=== PATIENT | male | born 1960 | race Two or more races ===

== ENCOUNTER 2020-04-28 08:45 | Inpatient (IN) | payer OTHER ==
[~2020-04-28] VITALS: Ht 180.3 cm; Wt 81.6 kg
[2020-04-28] MEDS ORDERED: TOPROL XL100 M1 PO (08:57)
[2020-04-28] MEDS ORDERED: NORVASC5 MG PO (08:58)
[2020-04-28] MEDS ORDERED: COZAAR100 MG PO (08:58)
[2020-04-28] MEDS ORDERED: NEXIUM40 M1 PO (08:59)
[2020-04-28] MEDS ORDERED: XARELTO20 MG PO (08:59)
== END 2020-05-05 14:26 | disposition home or self-care (01) | DRG 331 ==
LOC: SURH 05-02 07:00 → O/R 05-02 08:45 → SURG 05-02 09:40 → O/R 05-02 09:40 → SURG 05-02 19:32 → O/R 05-02 20:22 → SURH 05-02 20:53 → SURG 05-03 01:21
PROVIDERS: ADMIT Colon & Rectal Surgery; ATTEND Colon & Rectal Surgery
PROC: 0DBN4ZZ Excision of Sigmoid Colon, Percutaneous Endoscopic Approach (ICD-10-PCS; 2020-05-02)
PROC: 0DNW4ZZ Release Peritoneum, Percutaneous Endoscopic Approach (ICD-10-PCS; 2020-05-02)
PROC: 0DJD8ZZ Inspection of Lower Intestinal Tract, Via Natural or Artificial Opening Endoscopic (ICD-10-PCS; 2020-05-02)
PROC: 0DTP4ZZ Resection of Rectum, Percutaneous Endoscopic Approach (ICD-10-PCS; principal; 2020-05-02 07:00)
DX: K57.30 Diverticulosis of large intestine without perforation or abscess without bleeding (principal); J45.20 Mild intermittent asthma, uncomplicated; I13.10 Hypertensive heart and chronic kidney disease without heart failure, with stage 1 through stage 4 chronic kidney disease, or unspecified chronic kidney disease; N18.2 Chronic kidney disease, stage 2 (mild); D64.9 Anemia, unspecified; F17.200 Nicotine dependence, unspecified, uncomplicated; K66.0 Peritoneal adhesions (postprocedural) (postinfection); Z86.711 Personal history of pulmonary embolism

== ENCOUNTER 2022-12-10 17:38 | Inpatient (IN) | payer OTHER ==
[~2022-12-10] VITALS: Ht 180.3 cm; Wt 83.9 kg
[~2022-12-10 17:38] MED LIST: COZAAR100 MG PO; NEXIUM40 M1 PO; NORVASC5 MG PO; TOPROL XL100 M1 PO; XARELTO20 MG PO
--- NOTE | 2022-12-10 17:48 | NUR ---
PTE ALERTA,ESTABLE Y ORIENTADO.AMBERLY REFIERE QUE DESDE EVELYN COMENZO CON LAS DIARRHEA Y VOMITOS
--- NOTE | 2022-12-10 18:44 | NUR ---
SE LE ORIENTA A PACIENTE SOBRE LAS ORDENES MEDICAS, REFIERE ENTENDER LAS MISMAS. SE CANALIZA Y SE LE COLOCA LOS IVF'S, SE LE BRIAN LAS MUETRAS Y SE LE ADMINISTRAN LOS MEDICAMENTOS VAN LAS ORDENES MEDICAS.
== END 2022-12-13 11:34 | disposition home or self-care (01) | DRG 689 ==
LOC: ER 17:38 → SEC-K 23:54 → MEDJ 23:54 → MEDI 12-11 02:03 → MEDJ 12-11 05:48
PROVIDERS: ADMIT Internal Medicine; ATTEND Internal Medicine
PROC: BW21ZZZ Computerized Tomography (CT Scan) of Abdomen and Pelvis (ICD-10-PCS; principal; 2022-12-10)
DX: N39.0 Urinary tract infection, site not specified (principal); I26.99 Other pulmonary embolism without acute cor pulmonale; N17.8 Other acute kidney failure; K52.89 Other specified noninfective gastroenteritis and colitis; E87.6 Hypokalemia; I12.9 Hypertensive chronic kidney disease with stage 1 through stage 4 chronic kidney disease, or unspecified chronic kidney disease; N18.2 Chronic kidney disease, stage 2 (mild); Z20.822 Contact with and (suspected) exposure to COVID-19; K27.9 Peptic ulcer, site unspecified, unspecified as acute or chronic, without hemorrhage or perforation; Z86.718 Personal history of other venous thrombosis and embolism

== ENCOUNTER 2025-06-30 11:27 | Emergency (ER) | payer OTHER ==
[~2025-06-30] VITALS: Ht 180.3 cm; Wt 95.7 kg
[2025-06-30 13:18] VITALS: BP 119/81; O2SAT 97
[2025-06-30] MEDS ORDERED: ONDANSETRON HCL 4 MG in 0.9 % SODIUM CHLORIDE 50 ML IV ONE (14:15)
[2025-06-30] MEDS ORDERED: FAMOTIDINE/PF 20 MG/2 ML VIAL IV PUSH ONE (14:15)
[2025-06-30] MEDS ORDERED: 0.9 % SODIUM CHLORIDE 1,000 ML IV SCH (14:30)
[2025-06-30] MEDS ORDERED: ONDANSETRON HCL 2 MG/ML VIAL ONE (15:23)
[2025-06-30] MEDS ORDERED: FAMOTIDINE/PF 20 MG/2 ML VIAL ONE (15:24)
[2025-06-30 16:15] LABS: BASO % 0.3 % (0.1-1.2); EOS # 0.02 (0.04-0.54); EOS % 0.1 % (0.7-7.0); LYMPH # 1.14 (1.18-3.74); LYMPH % 7.2 % (19.3-53.1); MEAN PLATELET VOLUME 10.40 fl (9.4-12.4); MONO # 0.73 (0.24-0.82); MONO % 4.6 % (4.7-12.5); NEUT # 13.74 (1.56-6.13); NEUT % 87.4 % (34.0-71.1); RED CELL DISTRIBUTION WIDTH 12.8 % (11.6-14.4)
[2025-06-30 16:34] LABS: INR 1.26
[2025-06-30 16:47] LABS: ALT/SGPT 18.0 U/L (12-78); AST/SGOT 16.0 U/L (15-37); BILIRUBIN TOTAL 1.36 mg/dL (0.3-1.2); BUN CREA RATIO 11.0 (7.0-25.0); CREATININE SERUM 1.52 mg/dL (0.70-1.30); GFR 46.26; GLOBULINA 3.9 G/DL (2.4-3.5); GLUCOSE FASTING 103.0 mg/dL (65-100); OSMOLALITY SERUM 288.0 MOSM/KG (275-295)
[2025-06-30] MEDS ORDERED: MECLIZINE HCL 25 MG TABLET PO ONE ×2 (17:18→17:30)
[2025-06-30 20:41] LABS: URINE APPEARANCE Cloudy; URINE BILIRRUBIN Negative (NEGATIVE); URINE BLOOD Trace; URINE COLOR Dark Yellow; URINE GLUCOSE Negative (NEGATIVE); URINE LEUKOCYTE Large; URINE NITRATE Negative; URINE UROBILINOGEN 1.0 E.U./dl
[2025-06-30 20:45] LABS: URINE BACTERIA 5389.0 uL (0.0-1933); URINE CAST 15.10 uL (0.0-1.40); URINE EPITHELIAL CELLS 17.9 uL (0.0-38.8); URINE RBC 7.0 uL (0.0-20.8); URINE WBC 1321.4 uL (0.0-23.2)
[2025-06-30 21:29] LABS: URINE CRYSTALS FEW /HPF; URINE KETONE 40 (NEGATIVE); URINE PROTEIN 100 (NEGATIVE)
[2025-06-30 21:30] LABS: URINE MUCUS SCANT
[2025-06-30 21:31] LABS: TYPE CELLS SQUAMOUS
[2025-06-30] MEDS ORDERED: CEFTRIAXONE SODIUM 1,000 MG VIAL IV STA (21:52)
[2025-06-30] MEDS ORDERED: CEFTRIAXONE SODIUM 1,000 MG VIAL ONE (22:48)
== END 2025-06-30 23:10 | disposition home or self-care (01) ==
LOC: ER 11:28
PROVIDERS: General Practice
DX: N39.0 Urinary tract infection, site not specified (principal); K29.70 Gastritis, unspecified, without bleeding; R11.10 Vomiting, unspecified
CPT/HCPCS: 36415; 70450; 74176; 93005; 96365; 96366; 99284; J0696; J2405; J3490; J7030